=== PATIENT | female | born 1940 | race Caucasian/White ===

== ENCOUNTER → 2023-07-07 | Outpatient (CLI) | payer MEDICARE ==
--- NOTE | 2023-07-07 16:24 | CT ---
EXAMINATION TYPE: CT lumbar spine wo con CT DLP: 970 mGycm, Automated exposure control for dose reduction was used. DATE OF EXAM: 07/07/2023 2:57 PM COMPARISON: None. CLINICAL INDICATION:Female, 82 years old with history of M54.51 VERTEBROGENIC LOW BACK PAIN; PHH, chr onic lower back pain TECHNIQUE: Multiple axial images were obtained from the midportion of T11 through the sacroiliac fito nts. Soft tissue and bone windows in coronal and sagittal planes were obtained and reviewed. 3-D ref ormats of the bones were created on a separate workstation and submitted for review. Contrast used: mL of , (None, if empty). Oral contrast used: (None, if empty). FINDINGS: Alignment: There are 5 lumbar type vertebral bodies with scoliosis alignment apex left L1. Bone: No evidence of fracture is identified. Multilevel degeneration with osteophyte formation and d isc space narrowing. Facet joint arthropathy seen throughout the spine. Discs: T12-L1: Facet joint arthropathy and disc bulging result with mild spinal canal stenosis and mild bila teral neural foraminal stenosis. L1-L2: Facet joint arthropathy and disc bulging result with mild spinal canal stenosis and mild bilat eral neural foraminal stenosis. L2-L3: Facet joint arthropathy and disc bulging result with mild spinal canal stenosis and mild to mo derate bilateral neural foraminal stenosis. L3-L4: Facet joint arthropathy and disc bulging result with mild spinal canal stenosis and mild to mo derate bilateral neural foraminal stenosis. L4-L5: Facet joint arthropathy and disc bulging result with mild spinal canal stenosis and moderate t o severe left and mild to moderate neural foraminal stenosis. L5-S1: Facet joint arthropathy and disc bulging result with mild spinal canal stenosis and moderate t o severe left and mild to moderate right neural foraminal stenosis. Other: None IMPRESSION: 1. No evidence for spinal fracture. 2. Moderate degeneration changes with scoliosis. Varying degrees of neural foraminal stenosis as desc ribed above. No evidence for significant spinal canal stenosis.
== END | disposition home or self-care (01) ==
LOC: RADCTMAIN 14:38
PROVIDERS: ATTEND Physical Medicine & Rehabilitation
DX: M51.36 Other intervertebral disc degeneration, lumbar region (principal); M99.73 Connective tissue and disc stenosis of intervertebral foramina of lumbar region; M41.86 Other forms of scoliosis, lumbar region
CPT/HCPCS: 72131

== ENCOUNTER → 2023-07-22 | Outpatient (CLI) | payer MEDICARE ==
[2023-07-22 15:43] LABS: INR 1.14 sec (0.93-1.11); Prothrombin Time 12.2 sec (9.9-11.9)
== END | disposition home or self-care (01) ==
LOC: LABWHC1 08:16
PROVIDERS: ATTEND Physical Medicine & Rehabilitation
DX: M54.16 Radiculopathy, lumbar region (principal); M41.25 Other idiopathic scoliosis, thoracolumbar region; M47.816 Spondylosis without myelopathy or radiculopathy, lumbar region; M47.817 Spondylosis without myelopathy or radiculopathy, lumbosacral region; M48.062 Spinal stenosis, lumbar region with neurogenic claudication; M51.36 Other intervertebral disc degeneration, lumbar region; M51.37 Other intervertebral disc degeneration, lumbosacral region; Z79.01 Long term (current) use of anticoagulants
CPT/HCPCS: 36415; 85610